=== PATIENT | female | born 1985 | race African-American/Black ===

== ENCOUNTER 2018-08-31 12:40 | Emergency (ER) | payer SELFPAY ==
[~2018-08-31] VITALS: Ht 154.9 cm; Wt 65.0 kg
[2018-08-31] MEDS ORDERED: IBUPROFEN 800MG TABLET PO ONE (13:45)
[2018-08-31] MEDS ORDERED: ACETAMINOPHEN 325MG TABLET PO ONE (14:00)
[2018-08-31 15:18] VITALS: BP 128/78
== END 2018-08-31 15:20 | disposition home or self-care (01) ==
LOC: ER 12:40
DX: S93.505A Unspecified sprain of left lesser toe(s), initial encounter (principal); F17.200 Nicotine dependence, unspecified, uncomplicated; X58.XXXA Exposure to other specified factors, initial encounter; Y93.89 Activity, other specified; Y92.89 Other specified places as the place of occurrence of the external cause; Y99.8 Other external cause status
CPT/HCPCS: 73630; 99283

== ENCOUNTER 2020-09-14 13:14 | Emergency (ER) | payer SELFPAY ==
[~2020-09-14] VITALS: Ht 154.9 cm; Wt 59.0 kg
[2020-09-14] MEDS ORDERED: IBUPROFEN 600MG TABLET PO ONE (13:45)
[2020-09-14] MEDS ORDERED: IBUP-2029 MT (14:27)
[2020-09-14 15:12] VITALS: BP 123/60
== END 2020-09-14 15:13 | disposition home or self-care (01) ==
LOC: ER 13:14
DX: S60.211A Contusion of right wrist, initial encounter (principal); M54.5 Low back pain; R03.0 Elevated blood-pressure reading, without diagnosis of hypertension; V43.62XA Car passenger injured in collision with other type car in traffic accident, initial encounter; Y93.89 Activity, other specified; Y92.488 Other paved roadways as the place of occurrence of the external cause
CPT/HCPCS: 73110; 81025; 99283

== ENCOUNTER 2023-04-12 00:52 | Emergency (ER) | payer SELFPAY ==
[~2023-04-12] VITALS: Ht 162.6 cm; Wt 62.5 kg
[~2023-04-12 00:52] MED LIST: IBUP-2029 MT
[2023-04-12] MEDS ORDERED: IBUPROFEN 400MG TABLET PO ONE (01:15)
[2023-04-12] MEDS ORDERED: AMOX1TAB16 MT (03:30)
[2023-04-12 03:44] VITALS: BP 122/65; PULSE 98; RESP 18; TEMP 98.7
== END 2023-04-12 03:46 | disposition home or self-care (01) ==
LOC: ER 00:59
DX: K02.9 Dental caries, unspecified (principal); Z98.890 Other specified postprocedural states
CPT/HCPCS: 99283

== ENCOUNTER 2024-03-17 20:03 | Emergency (ER) | payer SELFPAY ==
[~2024-03-17] VITALS: Ht 162.6 cm; Wt 77.1 kg
[~2024-03-17 20:03] MED LIST changes: +AMOX1TAB16 MT
[2024-03-17 20:32] VITALS: O2SAT 99
[2024-03-17] MEDS ORDERED: AMOX1TAB16 MT (23:13)
[2024-03-17] MEDS ORDERED: IBUP-2029 MT (23:13)
[2024-03-17 23:24] VITALS: BP 122/60; PULSE 79; RESP 16; TEMP 37.16964; O2SAT 99
== END 2024-03-17 23:28 | disposition home or self-care (01) ==
LOC: ER 20:03
DX: K04.7 Periapical abscess without sinus (principal); Z98.890 Other specified postprocedural states
CPT/HCPCS: 99283